=== PATIENT | female | born 1995 | race Caucasian/White ===

== ENCOUNTER 2018-12-08 14:45 | Outpatient (REF) | payer MEDICAID, SELFPAY ==
--- NOTE | 2018-12-08 14:10 | PAPFT_PTH ---
PATIENT: Monique Orlando LOC: [facility] U#:[id number] AGE/SX: 23/F ROOM: RE12/08/[address]: MEHUL Hatch : 1995 BED: DIS: 12/08/2018 SPEC #: [id number] RECD: 12/08/18 18:10 STATUS: DELMAR RELaxmi #: [id number] LARA: 12/08/18 14:[address]: Claire Wisdom DEPT: [facility] Cytology RECD BY: Patricia Tirado ENTERED: 12/08/18 18:10 SP TYPE: PAPFT YESICA DR: Renetta Gordon Tissues: 1 - CX/ENDOCX FOR PAP SMEARS Procedures: PAP THIN PREP/UVM Screening Comments: [id number]
[2018-12-09 13:03] LABS: Chlamydia Result Negative; GC Result Negative; Specimen Description CERVIX
== END 2018-12-08 15:05 ==
LOC: LBN 14:45
PROVIDERS: Visit Provider Nurse Practitioner Family
DX: Z11.3 Encounter for screening for infections with a predominantly sexual mode of transmission (principal); Z12.4 Encounter for screening for malignant neoplasm of cervix
CPT/HCPCS: 87491; 87591; 88142

== ENCOUNTER 2020-08-05 15:52 | Outpatient (REF) | payer MEDICAID, SELFPAY ==
--- NOTE | 2020-08-05 13:30 | PAPFT_PTH ---
PATIENT: Monique Orlando LOC: [facility] U#:[id number] AGE/SX: 25/F ROOM: RE08/05/[address]: MEHUL Hatch : 1995 BED: DIS: 08/05/2020 SPEC #: [id number] RECD: 08/05/20 18:16 STATUS: DELMAR REQ #: [id number] LARA: 08/05/20 13:[address]: Claire Wisdom DEPT: [facility] Cytology RECD BY: Patricia Tirado ENTERED: 08/05/20 18:16 SP TYPE: PAPFT YESICA DR: Renetta Gordon Tissues: 1 - CX/ENDOCX FOR PAP SMEARS Procedures: PAP THIN PREP/UVM Screening Comments: [id number] ([id number] [facility])
[2020-08-07 03:24] LABS: Chlamydia amplified RNA Negative (Negative); N gonorrhoeae amplified RNA Negative (Negative); Source ENDOCERVIX
== END 2020-08-05 16:12 ==
LOC: LBN 15:52
PROVIDERS: Visit Provider Nurse Practitioner Family
DX: Z11.3 Encounter for screening for infections with a predominantly sexual mode of transmission (principal); Z12.4 Encounter for screening for malignant neoplasm of cervix
CPT/HCPCS: 87491; 87591; 88142

== ENCOUNTER 2021-08-07 09:42 | Emergency (ER) | payer MEDICAID, SELFPAY ==
[2021-08-07 09:56] VITALS: BP 120/87; PULSE 71; RESP 18; TEMP 36; O2SAT 100
--- NOTE | 2021-08-07 10:32 | ED.GENADUL_ITS ---
Discharge Plan Disposition Patient Disposition: HOME Condition: Stable Discharge Details Clinical Impression: URI (upper respiratory infection) Primary Care Provider: Renetta,Local ED Provider: Vance Jaramillo Home Meds and New Rx's Prescriptions: Continued imiquimod 5 % cream in packet 1 applic TP .COMPLEX Qty: 12 RF: 4 terconazole 0.4 % cream 1 appful vaginal DAILY Qty: 45 RF: 0 Discharge Instructions Instructions: Upper Respiratory Infection (ED) Additional Instructions: Rapid strep negative, culture pending. Covid test is also pending, I recommend quarantining until this test has resulted negative as well. Bgcp-ium-tmyvurt medications as directed for symptomatic control. Please watch for new or worsening symptoms and return to the ER for any concerns. Lastly, please contact your primary care provider on Wednesday to discuss your symptoms and need for outpatient follow-up appointment. Medical Decision Making 26-year-old female with URI-like symptoms that began yesterday, family with similar symptoms. Has not taken any medication oovu-ilg-xqmjbow for her symptoms. Clinically appears well, nontoxic. Manages secretions without difficulty, no evidence of trismus. Will obtain rapid strep and a send out Covid. Rapid strep negative Discussed negative strep with patient. Recommend quarantining until the Covid test has resulted negative. Fhqy-hat-fjvnagp medications for symptomatic control. Standard discharge and return precautions provided This documentation was generated using [employer] system, please disregard any oddities of phrase or misspellings. Medical Records Medical records reviewed: Yes I reviewed the patient's medical records. Lab Data Lab results reviewed: Yes I reviewed the patient's lab results. Labs: 08/07/21 10:01 Tonsil - Not Specified Group A Streptococcus Culture - Pending HPI General Mode of arrival: ambulatory . Date/Time Provider Initiated Documentation: 08/07/21 09:54 . Limitations to Documentation: no limitations . Information obtained by: patient . History of Present Illness 26 year old F presents to the emergency department with the chief complaint of URI, described as mild, with intensity rated at 2. Quality is described as aching, and is localized to the mouth (Sore throat). Patient reports no radiation. Patient started experiencing this day(s) (1) and it has been constant. No relieving factors improve symptom(s), No exacerbating factors reported . Patient notes denies cough, fever/chills, headaches, nausea/vomiting, rash and shortness of breath. Patient did receive the following treatments prior to arrival, none Related Data Home Medications Medication Instructions Recorded Confirmed imiquimod 5 % topical cream packet 1 applic TP .COMPLEX #12 each 08/05/20 08/05/20 terconazole 0.4 % vaginal cream 1 appful VAGINAL DAILY #45 g 08/05/20 08/07/21 Previous Rx's Medication Instructions Recorded imiquimod 5 % topical cream packet 1 applic TP .COMPLEX #12 each 08/05/20 terconazole 0.4 % vaginal cream 1 appful VAGINAL DAILY #45 g 08/05/20 Allergies Allergy/AdvReac Type Severity Reaction Status Date / Time No Known Allergies Allergy Unverified 08/07/21 10:03 General Stated Complaint: RespSymp BETH: 4 Review of Systems Constitutional Constitutional: Denies fever(s) and Denies headache(s) Eyes Eyes: Denies eye discharge ENT Ears, Nose, Mouth, and Throat: Denies headache(s) and Reports sore throat Cardiovascular Cardiovascular: Denies dyspnea Respiratory Respiratory: Denies cough and Denies dyspnea Gastrointestinal Gastrointestinal: Denies abdominal pain, Denies nausea and Denies vomiting Musculoskeletal Musculoskeletal: Denies back pain Integumentary/Breasts Skin/Breast: Denies rash Neurologic Neurologic: Denies headache(s) [facility] Active Problem List Genital warts (Acute 11/24/13) Family History Mother No problems noted. Father Heart disease PVC's Other Essential hypertension both sides Diabetes MGF Personal history of malignant neoplasm paternal-colon Hyperlipidemia paternal side Mental disorder maternal-anxiety/depression Social History Smoking/Tobacco Use Status: Current-Occasional Tobacco Type: cigarettes Smoking risk assessment performed?: Yes Alcohol Intake: current Alcohol Intake frequency: a few times a month Drug use: Never Substance use type: does not use Do you feel safe at home: Yes Do you feel safe in your relationship?: Yes Female Reproductive History Menstrual control method: none Exam Const General: cooperative, healthy appearing, comfortable and no acute distress Orientation: alert and awake [facility] Head: normal to inspection, normocephalic and atraumatic Ears: external ears normal, TM's normal bilaterally and EAC's normal General nose exam: external nose normal and nasal discharge clear Mouth: oral mucosae normal and moist mucous membranes Throat: posterior oropharynx normal Eyes General: appearance normal, both eyes and all related structures Conjunctivae: conjunctivae normal Neck Neck: normal visual inspection, full ROM, no lymphadenopathy, no meningeal signs, trachea midline, supple and nontender Resp Effort & Inspection: normal respiratory effort and able to speak in complete sentences Auscultation: clear to auscultation bilaterally Cardio Rate: regular rate Rhythm: regular rhythm Skin General skin exam: no rashes or lesions noted Neuro General: patient alert, patient awake, moves all extremities and no focal motor deficits Sensory Exam: no sensory deficits noted Psych Appearance: grossly normal Mental Status: mental status grossly normal Course Vital Signs Vital signs: Vital Signs Temperature 36 C L 08/07/21 09:56 Pulse 71 08/07/21 09:56 Respiratory Rate 18 08/07/21 09:56 Blood Pressure 120/87 08/07/21 09:56 Pulse Oximetry 100 08/07/21 09:56 Temperature 36 C L 08/07/21 09:56 Temperature Source Temporal Artery Scan 08/07/21 09:56 Pulse 71 08/07/21 09:56 Respiratory Rate 18 08/07/21 09:56 Respiratory Effort Non-Labored 08/07/21 10:03 Respiratory Depth Normal 08/07/21 10:03 Blood Pressure 120/87 08/07/21 09:56 Blood Pressure Position Sitting 08/07/21 09:56 Pulse Oximetry 100 08/07/21 09:56 Oxygen Delivery Method Room Air 08/07/21 09:56 Oxygen Flow Rate 0 08/07/21 09:56 Lab/Test Results Lab/Test Results: 08/07/21 10:01 Tonsil - Not Specified Group A Streptococcus Culture - Pending POC Strep Test-MARTINEZ(Rapid) Start: 08/07/21 09:59 Freq: .Rapid Strep Test Status: Active Protocol: Document 08/07/21 10:14 TB (Rec: 08/07/21 10:14 TB [id number]) Strep test-MARTINEZ(Rapid)-POC POC-Strep test-MARTINEZ (Rapid) Negative POC-Strep test-MARTINEZ (Rapid) Negative PAWSS Have you Been Recently Intoxicated or Drunk Within the Last 30 days?: No Have you Ever Experienced Previous Episodes of Alcohol Withdrawal?: No Have you ever Experienced Withdrawal Seizures?: No Have you ever Experienced Delirium Tremens(DT)s?: No Have you ever undergone Alcohol Rehabilitation Treatment (i.e, inpt ot outpatient treatment programs)?: No Have you ever Experienced Blackouts?: No Have you ever Combined Alcohol with other Downers within the last 90 days?: No Have you ever Combined Alcohol with any other Substance of Abuse during the last 90 days?: No Positive Blood Alcohol level on Presentation? [PCS.BAL]: No Evidence of Increased Autonomic Activity (i.e. HR>120, tremor, sweating, agitation, nausea)?: No Result: 0
[2021-08-09 11:07] LABS: COVID-19 RT-PCR UVMMC Result Negative (Negative)
== END 2021-08-07 10:48 | disposition home or self-care (01) ==
PROVIDERS: Emergency Provider Physician Assistant
DX: J06.9 Acute upper respiratory infection, unspecified (principal); Z20.822 Contact with and (suspected) exposure to COVID-19; Z03.818 Encounter for observation for suspected exposure to other biological agents ruled out
CPT/HCPCS: 87880; 99282; U0003; 87081; 99283

== ENCOUNTER 2022-06-17 14:48 | Emergency (ER) | payer MEDICAID, SELFPAY ==
[2022-06-17 15:04] VITALS: BP 115/68; PULSE 89; RESP 16; TEMP 37; O2SAT 100
--- NOTE | 2022-06-17 16:37 | ED.GENADUL_ITS ---
Discharge Plan Disposition Patient Disposition: HOME Condition: Stable Discharge Details Clinical Impression: URI (upper respiratory infection) Primary Care Provider: RenettaLocal ED Provider: Richy Koehler Home Meds and New Rx's Prescriptions: No Action No Known Home Meds Discharge Instructions Instructions: Upper Respiratory Infection (ED) Additional Instructions: Please continue to monitor symptoms and return to the emergency department if you develop any new or significant worsening of your condition. Otherwise continue to stay well-hydrated, use Motrin for discomfort, and consider use of pohl-ntx-saqozon medication that matches your symptoms. If not improving in the next week please follow-up with your primary care provider for reassessment. Referrals: Primary Care Provider [Outside] - 1 week Discharge Data Discharge Date/Time-TO BE ENTERED AT DEPARTURE: 06/17/22 16:48 Medical Decision Making Patient presenting to the emergency department for chief complaint of sore throat nasal congestion cough and some ear ache. Patient states that this is been going on for last 2 days. Patient did have a cold a couple weeks ago and fully recovered and then started having the symptoms. Patient denies any fever chills, difficulty breathing, or inability to swallow. Exam consistent with Pharyngitis. no signs of deep neck space infection ( Retropharyngeal abscess, Chevy's angina, Parapharyngeal space infection, Peritonsillar Abscess ([employer])) or Epiglottitis. Pt non toxic and stable. Patient has clear lung sounds no lymphadenopathy, mildly irritated tonsillitis. Given other symptoms and low Centor score suspect URI. Nursing staff protocols performed strep testing which was negative and culture was sent. Discussed with patient possible consideration of steroids for discomfort which she refused at this point. Discussed conservative management along with staying well-hydrated along with return and follow-up precautions. After discussion of diagnosis and plan of care patient has no further needs, questions, or concerns and states clear understanding to return to the emergency department for any worsening symptoms. This documentation was generated using [employer] system, please disregard any oddities of phrase or misspellings. HPI General Mode of arrival: ambulatory . Date/Time Provider Initiated Documentation: 06/17/22 16:10 . Limitations to Documentation: no limitations . Information obtained by: patient and RN notes reviewed . History of Present Illness 27 year old F presents to the emergency department with the chief complaint of Sore throat, nasal congestion, cough, described as moderate, with intensity rated at 7. Quality is described as aching, and is localized to the mouth (sore throat). Patient reports no radiation. Patient started experiencing this day(s) (2) and it has been constant. No relieving factors improve symptom(s), Patient notes cough and malaise; denies fever/chills and shortness of breath. Patient did receive the following treatments prior to arrival, none Related Data Home Medications Medication Instructions Recorded Confirmed Unknown [No Known Home Meds] 10/13/21 06/17/22 Allergies Allergy/AdvReac Type Severity Reaction Status Date / Time No Known Allergies Allergy Verified 06/17/22 15:12 General Stated Complaint: Sorethroat BETH: 4 Review of Systems Constitutional Constitutional: Denies chills, Denies fever(s), Denies headache(s) and Reports malaise ENT Ears, Nose, Mouth, and Throat: Denies change in voice, Denies dysphagia, Reports otalgia, Denies headache(s), Denies hoarseness, Denies lip swelling, Denies mouth lesions, Reports nasal congestion, Reports odynophagia, Reports sore throat, Denies throat swelling and Denies tongue swelling Cardiovascular Cardiovascular: Denies chest pain Respiratory Respiratory: Denies chest congestion and Reports cough Gastrointestinal Gastrointestinal: Denies dysphagia and Reports odynophagia Neurologic Neurologic: Denies headache(s) Allergic/Immunologic Allergic/Immunologic: Denies lip swelling, Denies throat swelling and Denies tongue swelling PFSH All Active Problems (Updated 06/17/22 @ 16:43 by Richy Koehler NP) URI (upper respiratory infection) (Acute) Family History Mother No problems noted. Father Heart disease PVC's Other Essential hypertension both sides Diabetes MGF Personal history of malignant neoplasm paternal-colon Hyperlipidemia paternal side Mental disorder maternal-anxiety/depression Social History Smoking/Tobacco Use Status: Former Tobacco Use Smoking risk assessment performed?: Yes Alcohol Intake: current Alcohol Intake frequency: a few times a month Drug use: Occasionally Substance use type: marijuana Do you feel safe at home: Yes Do you feel safe in your relationship?: Yes Female Reproductive History Menstrual control method: none Exam Const General: cooperative, healthy appearing, comfortable, no acute distress and not ill appearing Orientation: alert, awake and oriented x3 HENMT Head: normal to inspection and normocephalic Ears: hearing grossly normal bilaterally, external ears normal, TM's normal bilaterally and mastoids normal General nose exam: external nose normal and nares normal Face and sinus: normal facial exam Mouth: oral mucosae normal, lip normal, tongue normal, no audible dysphonia, no drooling and no trismus Throat: uvula midline, abnormal tonsil bilaterally erythema and hypertrophy 1+ and no peritonsillar masses Neck Neck: normal visual inspection, full ROM, no lymphadenopathy and no meningeal signs Resp Effort & Inspection: normal respiratory effort, able to speak in complete sentences and no stridor Auscultation: clear to auscultation bilaterally Cardio Rate: regular rate Rhythm: regular rhythm Heart Sounds: S1 normal and S2 normal Skin General skin exam: no rashes or lesions noted Course Vital Signs Vital signs: Vital Signs Temperature 37.0 C 06/17/22 15:04 Pulse 89 06/17/22 15:04 Respiratory Rate 16 06/17/22 15:04 Blood Pressure 115/68 06/17/22 15:04 Pulse Oximetry 100 06/17/22 15:04 Temperature 37.0 C 06/17/22 15:04 Temperature Source Oral 06/17/22 15:04 Pulse 89 06/17/22 15:04 Respiratory Rate 16 06/17/22 15:04 Respiratory Effort Non-Labored 06/17/22 15:10 Blood Pressure 115/68 06/17/22 15:04 Blood Pressure Position Sitting 06/17/22 15:04 Pulse Oximetry 100 06/17/22 15:04 Oxygen Delivery Method Room Air 06/17/22 15:04 Oxygen Flow Rate 0 06/17/22 15:04 Pain Level 7 06/17/22 15:04 Lab/Test Results Lab/Test Results: 06/17/22 15:05 Pharynx Group A Streptococcus Culture - Pending POC Strep Test-MARTINEZ(Rapid) Start: 06/17/22 15:12 Freq: .Rapid Strep Test Status: Active Protocol: Document 06/17/22 15:14 CB (Rec: 06/17/22 15:15 [id number]) Strep test-MARTINEZ(Rapid)-POC POC-Strep test-MARTINEZ (Rapid) Negative POC-Strep test-MARTINEZ (Rapid) Negative PAWSS Have you Been Recently Intoxicated or Drunk Within the Last 30 days?: No Have you Ever Experienced Previous Episodes of Alcohol Withdrawal?: No Have you ever Experienced Withdrawal Seizures?: No Have you ever Experienced Delirium Tremens(DT)s?: No Have you ever undergone Alcohol Rehabilitation Treatment (i.e, inpt ot outpatient treatment programs)?: No Have you ever Experienced Blackouts?: No Have you ever Combined Alcohol with other Downers within the last 90 days?: No Have you ever Combined Alcohol with any other Substance of Abuse during the last 90 days?: No Positive Blood Alcohol level on Presentation? [PCS.BAL]: No Evidence of Increased Autonomic Activity (i.e. HR>120, tremor, sweating, agitation, nausea)?: No Result: 0
== END 2022-06-17 16:48 | disposition home or self-care (01) ==
PROVIDERS: Emergency Provider Nurse Practitioner Family
DX: J06.9 Acute upper respiratory infection, unspecified (principal); Z87.891 Personal history of nicotine dependence
CPT/HCPCS: 87880; 99281; 87081; 99282

== ENCOUNTER 2025-03-29 09:36 | Outpatient (CLI) | payer SELFPAY ==
[2025-03-29 09:48] LABS: TSH (W/Ref FT4) 1.57 uIU/mL (0.36-3.74)
== END 2025-03-29 09:37 | disposition home or self-care (01) ==
LOC: LBO 09:37
PROVIDERS: Visit Provider Obstetrics & Gynecology
DX: L65.9 Nonscarring hair loss, unspecified (principal)
CPT/HCPCS: 36415; 84443

== ENCOUNTER 2025-03-29 10:53 | Outpatient (REF) | payer SELFPAY ==
[2025-03-30 12:17] LABS: Chlamydia Result Negative (Negative); GC Result Negative (Negative)
== END 2025-03-29 10:54 | disposition home or self-care (01) ==
LOC: LBN 10:53
PROVIDERS: Visit Provider Obstetrics & Gynecology
DX: Z01.419 Encounter for gynecological examination (general) (routine) without abnormal findings (principal); Z12.4 Encounter for screening for malignant neoplasm of cervix
CPT/HCPCS: 87491; 87591; 88142